=== PATIENT | female | born 1985 | race Asian ===

== ENCOUNTER 2017-07-02 23:04 | Inpatient (IN) | payer SELFPAY ==
[~2017-07-02] VITALS: Ht 160 cm; Wt 62.6 kg
[~2017-07-02 23:04] MED LIST: LIDOCAINE PF 1% 30ML(POUR BTL) INJ ONE
[2017-07-02] MEDS ORDERED: LR 500 ML IV ONE (23:28)
[2017-07-02] MEDS ORDERED: OXYTOCIN/NORMAL SALINE 1,000 ML IV SCH (23:28)
[2017-07-02] MEDS ORDERED: LR 1,000 ML IV ONE (23:28)
[2017-07-02] MEDS ORDERED: LR 1,000 ML IV SCH (23:28)
[2017-07-02] MEDS ORDERED: NALBUPHINE HCL 10 MG/ML AMP IM PRN (23:30)
[2017-07-02] MEDS ORDERED: AMPICILLIN SODIUM 2 GM in NS 100 ML IV SCH (23:30)
[2017-07-03 00:02] LABS: EOSINOPHILS % (AUTO) 0.4 % (0.0-4.0); MEAN CORPUSCULAR HEMOGLOBIN 30 pg (27-31)
[2017-07-03 00:09] LABS: BASOPHILS % (AUTO) 0.5 % (0.0-2.0); HEMATOCRIT 34.4 % (36-48); HEMOGLOBIN 11.4 g/dL (12.0-16.0); LYMPHOCYTES # (AUTO) 1.6 K/uL (1.0-5.5); MEAN CORPUSCULAR HGB CONC 33 % (32-36); MEAN CORPUSCULAR VOLUME 90 fL (79.0-98.0); MONOCYTES # (AUTO) 0.6 K/uL (0.0-1.0); MONOCYTES % (AUTO) 6.4 % (1.7-9.3); NEUTROPHILS # (AUTO) 6.4 K/uL (1.8-7.7); NEUTROPHILS % (AUTO) 74.7 % (40.0-70.0); PLATELET COUNT (AUTO) 158 K/uL (130-430); RED BLOOD CELL COUNT(AUTO) 3.84 MIL/uL (4.2-6.2); WHITE BLOOD COUNT (AUTO) 8.6 K/uL (4.8-10.8)
[2017-07-03] MEDS ORDERED: AMPICILLIN SODIUM 2 GM VIAL ONE (00:37)
[2017-07-03] MEDS ORDERED: OXYTOCIN/NORMAL SALINE 1,000 ML IV ONE (03:21)
[2017-07-03] MEDS ORDERED: OXYTOCIN/NORMAL SALINE 1,000 ML IV SCH (03:21)
[2017-07-03] MEDS ORDERED: GLYCERIN/WITCH HAZEL (TUCKS PADS) TP PRN (03:30)
[2017-07-03] MEDS ORDERED: RHO(D) IMMUNE GLOBULIN/MALTOSE 1500 UNITS/1.3 ML (WINHRO) IM PRN (03:30)
[2017-07-03] MEDS ORDERED: DOCUSATE SODIUM 100 MG CAPSULE PO PRN (03:30)
[2017-07-03] MEDS ORDERED: METHYLERGONOVINE MALEATE 0.2 MG TABLET PO PRN (03:30)
[2017-07-03] MEDS ORDERED: HYDROCORTISONE 0.5%, 28.35 GM TOPICAL CREAM TP PRN (03:30)
[2017-07-03] MEDS ORDERED: HYDROcodone/ACETAMIN 5-325 MG TAB (NORCO/ VICODIN) PO PRN ×2 (03:30)
[2017-07-03] MEDS ORDERED: SENNOSIDES/DOCUSATE SODIUM 1 TAB TABLET(SENOKOT-S) PO PRN (03:30)
[2017-07-03] MEDS ORDERED: ACETAMINOPHEN 325 MG TABLET PO PRN (03:30)
[2017-07-03] MEDS ORDERED: ANUSOL 1 EA SUPP.RECT (PREPARATION H) RC PRN (03:30)
[2017-07-03] MEDS ORDERED: TEMAZEPAM 15 MG CAPSULE PO PRN (03:30)
[2017-07-03] MEDS ORDERED: LANOLIN 7 GM OINT. TP PRN (03:30)
[2017-07-03] MEDS ORDERED: MEASLES,MUMPS&RUBELLA VACC/PF 12500 UNIT/0.5 ML VIAL SUBQ PRN (03:30)
[2017-07-03] MEDS ORDERED: DERMOPLAST SPRAY TP PRN (03:30)
[2017-07-03] MEDS ORDERED: AMPICILLIN SODIUM 1 GM in NS 50 ML IV SCH (04:00)
[2017-07-03] MEDS: IBUPROFEN 600 MG TABLET PO SCH ×4 (06:00→23:50)
[2017-07-03] MEDS ORDERED: METHYLERGONOVINE MALEATE 0.2 MG TABLET ONE (06:15)
[2017-07-04] MEDS: IBUPROFEN 600 MG TABLET PO SCH (06:01)
[2017-07-04 06:46] LABS: HEMATOCRIT 33.3 % (36-48); HEMOGLOBIN 11.1 g/dL (12.0-16.0)
== END 2017-07-04 11:15 | disposition home or self-care (01) | DRG 775 ==
LOC: SPU 23:04
PROVIDERS: ADMIT Obstetrics & Gynecology; ATTEND Obstetrics & Gynecology
PROC: 0HQ9XZZ Repair Perineum Skin, External Approach (ICD-10-PCS; principal; 2017-07-03)
PROC: 10E0XZZ Delivery of Products of Conception, External Approach (ICD-10-PCS; 2017-07-03)
PROC: 3E0134Z Introduction of Serum, Toxoid and Vaccine into Subcutaneous Tissue, Percutaneous Approach (ICD-10-PCS; 2017-07-03)
DX: O99.824 Streptococcus B carrier state complicating childbirth (principal); Z23 Encounter for immunization; Z37.0 Single live birth; O70.0 First degree perineal laceration during delivery; Z3A.38 38 weeks gestation of pregnancy
CPT/HCPCS: 36415; 85018-TC; 85025; 86592; 86886; 86900; 86901; J0290; J2001; J2300; J2590

== ENCOUNTER 2018-08-10 21:25 | Observation (INO) | payer SELFPAY ==
[~2018-08-10] VITALS: Ht 160 cm; Wt 65.3 kg
[2018-08-10] MEDS: LR 1,000 ML IV SCH ×2 (22:06→23:30)
[2018-08-10] MEDS ORDERED: TERBUTALINE SULFATE 1 MG/ML VIAL SUBCUT ONE (23:30)
[2018-08-10] MEDS ORDERED: TERBUTALINE SULFATE 1 MG/ML VIAL ONE (23:35)
== END 2018-08-10 23:45 | disposition home or self-care (01) ==
LOC: SPU 21:25
PROVIDERS: ADMIT Obstetrics & Gynecology; ATTEND Obstetrics & Gynecology
DX: O42.913 Preterm premature rupture of membranes, unspecified as to length of time between rupture and onset of labor, third trimester (principal); Z3A.34 34 weeks gestation of pregnancy
CPT/HCPCS: 81002; 96372; G0378; J3105; 59899; J7120